=== PATIENT | female | born 1990 | race Caucasian/White ===

== ENCOUNTER 2017-10-29 09:45 | Observation (INO) | payer MEDICAID ==
[2017-10-29] MEDS ORDERED: PREN-145 OR (10:31)
== END 2017-10-29 12:15 | disposition home or self-care (01) | DRG 566 ==
LOC: LDRP 09:45
PROVIDERS: ADMIT Specialist; ATTEND Specialist
DX: O26.893 Other specified pregnancy related conditions, third trimester (principal); Z3A.38 38 weeks gestation of pregnancy
CPT/HCPCS: 59025; 76805; 81002; G0378

== ENCOUNTER 2017-11-09 06:25 | Inpatient (IN) | payer MEDICAID ==
[~2017-11-09] VITALS: Ht 172.7 cm; Wt 149.7 kg
[~2017-11-09 06:25] MED LIST: PREN-145 OR
[2017-11-09 07:54] LABS: Urine Bacteria NONE SEEN /hpf (None Seen); Urine Blood Negative /uL (Negative); Urine Mucus FEW (None Seen); Urine Specific Gravity 1.019 (1.001-1.035); Urine WBC 3 /hpf (0 - 5)
[2017-11-09 07:55] LABS: Basophils # (auto) 0.1 uL; Basophils % (auto) 0.6 % (0.0-2.0); Eosinophils # (auto) 0.1 uL; Hematocrit 38.4 % (36.0-46.0); Hemoglobin 12.6 g/dL (12.2-16.2); Lymphocytes # (auto) 1.9 uL; Mean Corpuscular Hemoglobin 28.2 pg (28.0-32.0); Mean Corpuscular Hgb Conc. 32.9 g/dL (32.0-36.0); Mean Corpuscular Volume 85.7 fL (80.0-100.0); Monocytes # (auto) 0.8 uL; Monocytes % (auto) 6.3 % (0.0-12.0); Neutrophils % (auto) 77.1 % (37.0-80.0); Nucleated Red Blood Cells % 0.1 %; Platelet Count (auto) 311 10^3/uL (140-450); Red Blood Cells 4.48 10^6/uL (4.0-5.20); Red Cell Distribution Width 14.9 % (11.8-14.3); White Blood Cell 12.9 10^3/uL (4.4-10.8)
[2017-11-09 08:06] LABS: INR 0.86 (0.9-1.15); Partial Thromboplastin Time 24.1 sec (23.78-33.04); Prothrombin Time 9.3 sec (9.27-12.13)
[2017-11-09] MEDS: LACTATED RINGER'S 1,000 ML IV SCH (09:00)
[2017-11-09 09:28] LABS: Albumin 2.6 g/dL (3.4-5.0); BUN/Creatinine Ratio 15.3; Bilirubin, Total 0.4 mg/dL (0.2-1.0); Calcium 8.6 mg/dL (8.5-10.1); Potassium 3.7 mmol/L (3.5-5.1); Total Protein 6.9 g/dL (6.4-8.2)
[2017-11-09] MEDS ORDERED: TETRACAINE 1% INJ 2 ML VIAL IJ ONE (10:34)
[2017-11-09] MEDS ORDERED: fentaNYL CITRATE 100 MCG/2 ML VL ONE (10:55)
[2017-11-09] MEDS ORDERED: hydrALAZINE HCL 20 MG/ML VL IV PRN (12:15)
[2017-11-09] MEDS ORDERED: ePHEDrine SULFATE 50 MG/ML AMP IV PRN (12:15)
[2017-11-09] MEDS ORDERED: ceFAZolin 1GM/50ML 50 ML IV SCH (12:15)
[2017-11-09] MEDS ORDERED: ONDANSETRON HCL 4 MG/2 ML VIAL IV ONE (12:15)
[2017-11-09] MEDS ORDERED: ONDANSETRON HCL 4 MG/2 ML VIAL IV PRN (12:15)
[2017-11-09] MEDS: KETOROLAC TROMETH 30 MG/ML 1ML VIAL IV PRN (14:30)
[2017-11-09 15:22] VITALS: BP 111/60
[2017-11-09] MEDS: LACT. RINGERS/OXYTOCIN 20UNITS 1,000 ML IV SCH ×2 (18:20→18:30)
[2017-11-09 19:00] VITALS: BP 120/73
[2017-11-09 19:30] VITALS: BP 132/64
[2017-11-09] MEDS: ceFAZolin 1GM/50ML 50 ML IV SCH (20:02)
[2017-11-09 20:32] LABS: Basophils # (auto) 0 uL; Basophils % (auto) 0.2 % (0.0-2.0); Eosinophils # (auto) 0.1 uL; Eosinophils % (auto) 0.6 % (0.0-7.0); Hematocrit 32.7 % (36.0-46.0); Hemoglobin 10.9 g/dL (12.2-16.2); Lymphocytes # (auto) 1.6 uL; Lymphocytes % (auto) 10.7 % (10.0-50.0); Mean Corpuscular Hemoglobin 28.9 pg (28.0-32.0); Mean Corpuscular Hgb Conc. 33.5 g/dL (32.0-36.0); Mean Corpuscular Volume 86.3 fL (80.0-100.0); Monocytes # (auto) 1.1 uL; Monocytes % (auto) 7.1 % (0.0-12.0); Neutrophils # (auto) 12.1 uL; Neutrophils % (auto) 81.4 % (37.0-80.0); Platelet Count (auto) 313 10^3/uL (140-450); Red Blood Cells 3.78 10^6/uL (4.0-5.20); Red Cell Distribution Width 14.5 % (11.8-14.3); White Blood Cell 14.8 10^3/uL (4.4-10.8)
[2017-11-09] MEDS: MORPHINE SULFATE 4 MG/ML SYR/VIAL IV PRN (21:57)
[2017-11-09 23:22] VITALS: BP 126/62
[2017-11-10] MEDS: KETOROLAC TROMETH 30 MG/ML 1ML VIAL IV PRN (00:53)
[2017-11-10] MEDS: LACTATED RINGER'S 1,000 ML IV SCH ×2 (00:59→23:20)
[2017-11-10] MEDS: MORPHINE SULFATE 4 MG/ML SYR/VIAL IV PRN (02:43)
[2017-11-10 02:58] VITALS: BP 117/62
[2017-11-10 04:06] LABS: RPR Non Reactive (Non Reactive)
[2017-11-10] MEDS: ceFAZolin 1GM/50ML 50 ML IV SCH ×2 (04:14→11:47)
[2017-11-10 06:35] VITALS: BP 124/58
[2017-11-10 06:40] LABS: Basophils # (auto) 0.1 uL; Basophils % (auto) 0.7 % (0.0-2.0); Eosinophils # (auto) 0.2 uL; Eosinophils % (auto) 1.8 % (0.0-7.0); Hematocrit 31.3 % (36.0-46.0); Hemoglobin 10.4 g/dL (12.2-16.2); Mean Corpuscular Hemoglobin 28.8 pg (28.0-32.0); Mean Corpuscular Hgb Conc. 33.1 g/dL (32.0-36.0); Mean Corpuscular Volume 87.1 fL (80.0-100.0); Monocytes # (auto) 0.9 uL; Monocytes % (auto) 6.8 % (0.0-12.0); Neutrophils # (auto) 9.9 uL; Neutrophils % (auto) 75.7 % (37.0-80.0); Platelet Count (auto) 288 10^3/uL (140-450); Red Cell Distribution Width 14.8 % (11.8-14.3); White Blood Cell 13.1 10^3/uL (4.4-10.8)
[2017-11-10] MEDS ORDERED: HYDROcodone-ACET 5/325MG TAB PO PRN (08:00)
[2017-11-10] MEDS ORDERED: BISACODYL 10 MG RECT SUPP PR PRN (08:00)
[2017-11-10] MEDS: SIMETHICONE 80 MG CHEWABLE TABLET PO SCH ×4 (08:23→22:32)
[2017-11-10] MEDS: HYDROcodone-ACET 5/325MG TAB PO PRN ×3 (08:23→23:43)
[2017-11-10] MEDS: DOCUSATE SOD 100 MG CAP PO SCH ×2 (10:29→22:31)
[2017-11-10] MEDS: DOCUSATE CALCIUM 240 MG CAP PO SCH (10:29)
[2017-11-10] MEDS: IBUPROFEN 800 MG TAB PO PRN ×2 (10:32→18:54)
[2017-11-10 11:00] VITALS: BP 124/82
[2017-11-10 15:10] VITALS: BP 121/69
[2017-11-10 18:45] VITALS: BP 149/75
[2017-11-10 23:00] VITALS: BP 109/71
[2017-11-11 03:15] VITALS: BP 115/60
[2017-11-11] MEDS: IBUPROFEN 800 MG TAB PO PRN ×2 (05:08→16:13)
[2017-11-11] MEDS: SIMETHICONE 80 MG CHEWABLE TABLET PO SCH ×4 (05:33→21:51)
[2017-11-11 06:45] VITALS: BP 123/82
[2017-11-11] MEDS: DOCUSATE CALCIUM 240 MG CAP PO SCH (10:00)
[2017-11-11] MEDS: DOCUSATE SOD 100 MG CAP PO SCH ×2 (10:00→21:51)
[2017-11-11 11:10] VITALS: BP 126/58
[2017-11-11 15:00] VITALS: BP 114/63
[2017-11-11 18:48] VITALS: BP 104/46
[2017-11-11 23:00] VITALS: BP 130/80
[2017-11-12 03:04] VITALS: BP 101/60
[2017-11-12] MEDS: IBUPROFEN 800 MG TAB PO PRN (05:03)
[2017-11-12] MEDS: SIMETHICONE 80 MG CHEWABLE TABLET PO SCH (05:04)
[2017-11-12] MEDS ORDERED: MEASLES, MUMPS & RUBELLA VAC(MMRII) 0.5ML SC ONE (06:00)
[2017-11-12 07:00] VITALS: BP 138/69
[2017-11-12 11:00] VITALS: BP 120/68
[2017-11-12] MEDS: DOCUSATE SOD 100 MG CAP PO SCH (11:15)
[2017-11-12] MEDS: DOCUSATE CALCIUM 240 MG CAP PO SCH (11:16)
== END 2017-11-12 12:00 | disposition home or self-care (01) | DRG 540 ==
LOC: LDRP 06:25
PROVIDERS: ADMIT Obstetrics & Gynecology; ATTEND Obstetrics & Gynecology
PROC: 10D00Z1 Extraction of Products of Conception, Low, Open Approach (ICD-10-PCS; principal; 2017-11-09 10:59)
DX: O36.63X0 Maternal care for excessive fetal growth, third trimester, not applicable or unspecified (principal); Z68.43 Body mass index [BMI] 50.0-59.9, adult; E66.9 Obesity, unspecified; D64.9 Anemia, unspecified; Z37.0 Single live birth; Z3A.00 Weeks of gestation of pregnancy not specified; O99.214 Obesity complicating childbirth; O99.62 Diseases of the digestive system complicating childbirth; O99.02 Anemia complicating childbirth
CPT/HCPCS: 36415; 51702; 59025; 80053; 81001; 85025; 85610; 85730; 86592; 86850; 86900; 86901; 90471; 96361; 96366; 96374; 96375; J0690; J1885; J2590

== ENCOUNTER 2019-03-19 20:59 | Observation (INO) | payer MEDICAID | END 2019-03-19 23:15 | disposition home or self-care (01) | DRG 566 | LOC: LDRP 20:59 | PROVIDERS: ADMIT Specialist; ATTEND Specialist | DX: O40.3XX0 Polyhydramnios, third trimester, not applicable or unspecified (principal); Z3A.34 34 weeks gestation of pregnancy | CPT/HCPCS: 59025; 76818; 81002; G0378 ==